=== PATIENT | female | born 1980 | race Caucasian/White ===

== ENCOUNTER 2023-09-08 11:13 | Day surgery (SDC) | payer BC ==
[2023-09-05 14:47] VITALS: BMI 28.1
[2023-09-08] MEDS: LACTATED RINGERS 1,000 ML IV SCH ×2 (11:57→12:04)
[2023-09-08] MEDS ORDERED: PROPOFOL 10 MG/ML 20 ML VIAL IV ONE (12:05)
[2023-09-08 12:08] VITALS: TEMP 98
--- NOTE | 2023-09-08 12:09 | P.GSHP ---
History of Present Illness H&P Date: 09/08/23 CHIEF COMPLAINT: Colon screen HISTORY OF PRESENT ILLNESS: The patient is a 42-year-old female who presents for colon screen. Lower endoscopy was offered for further evaluation and management. PAST MEDICAL HISTORY: Please see list. PAST SURGICAL HISTORY: Please see list. MEDICATIONS: Please see list. ALLERGIES: Please see list. SOCIAL HISTORY: No illicit drug use FAMILY HISTORY: No reports of Crohn disease or ulcerative colitis. REVIEW OF ORGAN SYSTEMS: CONSTITUTIONAL: No reports of fevers or chills. PHYSICAL EXAM: VITAL SIGNS: Stable GENERAL: Well-developed pleasant in no acute distress. HEENT: No scleral icterus. Extraocular movements grossly intact. Moist buccal mucosa. NECK: Supple without lymphadenopathy. CHEST: Unlabored respirations. Equal bilateral excursions. CARDIOVASCULAR: Regular rate and rhythm. Distal 2+ pulses. ABDOMEN: Soft, nontender, nondistended. MUSCULOSKELETAL: No clubbing, cyanosis, or edema. ASSESSMENT: 1. Colon screen. PLAN: 1. Recommend proceeding with a lower endoscopy Past Medical History Past Medical History: No Reported History History of Any Multi-Drug Resistant Organisms: None Reported Past Surgical History: Cholecystectomy, Tubal Ligation Additional Past Surgical History / Comment(s): tubal 2019 loss portion of tube Past Anesthesia/Blood Transfusion Reactions: No Reported Reaction Additional Past Anesthesia/Blood Transfusion Reaction / Comment(s): no blood transfusion Smoking Status: Never smoker Medications and Allergies Home Medications Medication Instructions Recorded Confirmed Type Dupilumab [Dupixent Syringe] 100 mg SQ Q30D 09/05/23 09/05/23 History Escitalopram [Lexapro] 10 mg PO DAILY 09/08/23 09/08/23 History Allergies Allergy/AdvReac Type Severity Reaction Status Date / Time No Known Allergies Allergy Verified 09/08/23 11:45 Surgical - Exam Vital Signs Temp Pulse Resp BP Pulse Ox 98.0 F 75 16 128/68 97 09/08/23 11:49 09/08/23 11:49 09/08/23 11:49 09/08/23 11:49 09/08/23 11:49
--- NOTE | 2023-09-08 12:30 | P.PCN ---
Date of Procedure: 09/08/23 Description of Procedure: PREOPERATIVE DIAGNOSIS: Change in bowel habits Family history colon cancer POSTOPERATIVE DIAGNOSIS: Change in bowel habits Family history colon cancer Microscopic colitis Internal and external hemorrhoids, grade 3 OPERATION: Colonoscopy with random cold forceps biopsies for microscopic colitis Colonoscopy to the cecum, ileocecal valve and appendiceal orifice. SURGEON: Shannan Ivy MD. ANESTHESIA: MAC. INDICATIONS: The patient is a 42-year-old female who presents with change in bowel habits and family history of colon cancer. Benefits and risks were described and informed consent was obtained. DESCRIPTION OF PROCEDURE: The patient had undergone Golytely prep. The patient had been brought into the operating room and laid in the left lateral decubitus position. After adequate intravenous sedation, the rectum was examined with 2% lidocaine jelly. External hemorrhoids were encountered. The rectal tone was within normal limits. No lesions were palpated in the rectal vault. An Olympus colonoscope was advanced until the cecum, ileocecal valve and appendiceal orifice were clearly viewed. The prep was good. No large scattered diverticulosis was encountered. No colonic polyps were found. Retroflexion of the scope demonstrated grade 3 internal hemorrhoids without active bleeding or inflammation. The colon was desufflated. The patient had tolerated the procedure well. Withdrawal time was over 6 minutes. FINDINGS: Aronchick preparation quality scale 2 (1-5) Internal hemorrhoids, grade 3 External prolapsed hemorrhoids, grade 3 No arteriovenous malformations. No adenomatous polyps. Random cold forceps biopsies for microscopic colitis RECOMMENDATIONS: Lower endoscopy in 5 years, 2028 Plan - Discharge Summary Discharge Rx Participant: No New Discharge Prescriptions: Continue Dupilumab [Dupixent Syringe] 100 mg SQ Q30D Escitalopram [Lexapro] 10 mg PO DAILY Discharge Medication List Dupilumab [Dupixent Syringe] 100 mg SQ Q30D 09/05/23 [History] Escitalopram [Lexapro] 10 mg PO DAILY 09/08/23 [History] Follow up Appointment(s)/Referral(s): Shannan Ivy MD [STAFF PHYSICIAN] - 10/11/23 9:45 am Patient Instructions/Handouts: Moderate Sedation (ED) Discharge Disposition: HOME SELF-CARE
[2023-09-08 12:33] VITALS: RESP 20
[2023-09-08 13:00] VITALS: BP 108/69; PULSE 61
== END 2023-09-08 13:21 | disposition home or self-care (01) ==
LOC: ORWHC2ENDO 11:13
PROVIDERS: ATTEND Surgery Plastic and Reconstructive Surgery
DX: Z12.11 Encounter for screening for malignant neoplasm of colon (principal); R19.4 Change in bowel habit; K64.2 Third degree hemorrhoids; K64.4 Residual hemorrhoidal skin tags; K52.9 Noninfective gastroenteritis and colitis, unspecified; F41.9 Anxiety disorder, unspecified; Z79.899 Other long term (current) drug therapy; Z90.49 Acquired absence of other specified parts of digestive tract; Z80.0 Family history of malignant neoplasm of digestive organs; Z98.51 Tubal ligation status
CPT/HCPCS: 81025; 88305; 45380; J2704